=== PATIENT | male | born 1975 | race Caucasian/White ===

== ENCOUNTER 2023-04-11 08:29 | Emergency (ER) | payer OTHER, MEDICAID, SELFPAY ==
[2023-04-11 08:31] VITALS: BP 117/85; PULSE 74; RESP 18; TEMP 36.5; O2SAT 100
--- NOTE | 2023-04-11 08:55 | EDS_ITS ---
HPI History of Present Illness Chief Complaint: Trauma Informant: patient Narrative Narrative: Patient is a 47-year-old male with history of opioid abuse, anxiety and depression presenting for finger injury. Patient was at work and trying to unjam a slicer when it moved and the blade came down on the patient's right middle finger. It took off the tip of his finger. He had bleeding. He could not find the tip. Is unsure when his last tetanus was. Denies any other injuries. Denies associate numbness or tingling. Is having pain at the site. Is able to move his finger. Bleeding seems to be controlled with direct pressure. Patient is right-hand dominant. Tetanus Immunization: Unknown PFSH PFSH Home Medications cephalexin 500 mg capsule 500 mg PO Q8H #9 caps 04/11/23 [Rx Last Taken Unknown] fluoxetine 20 mg capsule 20 mg PO DAILY 04/11/23 [History Last Taken Unknown] lamotrigine 25 mg tablet 50 mg PO DAILY 04/11/23 [History Last Taken Unknown] oxycodone-acetaminophen 5 mg-325 mg tablet (Percocet) 1 tab PO Q6H PRN pain 3 days #12 tabs 04/11/23 [Rx Last Taken Unknown] Allergy/AdvReac Type Severity Reaction Status Date / Time No Known Allergies Allergy Verified 04/11/23 08:31 Social History Smoking Status: Current every day smoker ROS ROS ED Constitutional Constitutional ED: Denies chills or fever(s) Gastrointestinal Gastrointestinal: Denies nausea or vomiting Musculoskeletal Musculoskeletal: Reports other Details: Right middle finger pain Integumentary Reports other Details: Laceration to the right middle finger Neurologic Neurologic: Denies paresthesias or weakness Psychiatric Psychiatric: Denies anxiety Hematologic/Lymphatic Hematologic/Lymphatic: Denies easy bleeding or easy bruising EXAM Physical Exam Const Vital Signs: 04/11/23 08:31 Temperature 97.7 F L Temperature Source Temporal Pulse Rate 74 Respiratory Rate 18 Blood Pressure 117/85 H Blood Pressure Mean 95 Pulse Ox 100 Oxygen Delivery Method Room Air Positive well nourished and well developed General Appearance ED: well developed and NAD HEENT atraumatic Chest Wall inspection of chest normal Resp normal respiratory effort Cardio regular rhythm Rate: regular rate Extremity normal to inspection and full ROM Extremity Narrative: Patient has amputation of the distal aspect of the right middle finger but otherwise has normal range of motion. Neuro oriented x3, moves all extremities, no focal motor deficits and no sensory deficits noted Psych mental status grossly normal Skin Skin Narrative: Avulsion of the distal aspect of the right middle finger. The proximal nailbed is intact with no significant subungual hematoma. No obvious exposed bone. MDM MDM MDM Narrative Medical decision making narrative: Patient valuated for avulsion of the right middle finger. Tetanus is updated. Will obtain an x-ray to ensure there is no bony involvement. Is not amenable to suture repair but will ensure that there is no further bleeding. Patient is requesting for pain and is agreeable with oxycodone. Patient has good bleeding control in the ER. Bandages changed 1 more time, wound is rinsed with saline and the Gelfoam and direct pressure again applied. X-ray viewed by myself as well as radiology does not show any acute bony injury. Because of the depth of the wounds and mechanism will place on prophylactic antibiotic for 3 days with Keflex. Patient is agreeable with a short course of Percocet for pain control. Also counseled he can take ibuprofen. Counseled to follow-up next week for wound check through the [facility]. Radiography Diagnostic Testing: Clinical Impression(s) from Imaging Studies Finger X-Ray 04/11/23 08:55 IMPRESSION: Soft tissue amputation overlying the distal phalanx of the third digit. No bony involvement is seen. Electronically Signed: Jef Mares MD at 9:07 EST Reading Location ID and State: [facility] / [place] , Service support , Discharge Plan Triage Chief Complaint: Trauma Other Complaint: Upper Extremity Injury ED Provider: Lizeth Watkins Dx/Rx/DC Orders Clinical Impression: Laceration of left middle finger, Avulsion of finger tip Instructions: ED Laceration, All Closures, ED Skin Tear (Skin Avulsion) Prescriptions: New oxycodone-acetaminophen [Percocet] 5-325 mg tablet 1 tab PO Q6H PRN (Reason: pain) 3 Days Qty: 12 0RF cephalexin 500 mg capsule 500 mg PO Q8H Qty: 9 0RF No Action fluoxetine 20 mg capsule 20 mg PO DAILY Patient Comments: Take 1 capsule by mouth once daily. lamotrigine 25 mg tablet 50 mg PO DAILY Patient Comments: Take 2 tablets by mouth every afternoon. Stand Alone Forms: Work Status Form Primary Care Provider: Jose Gonzalez Referrals: [facility] [Group of Physicians] - 3-5 Days (for wound check ) Jose Gonzalez MD [Primary Care Provider] - Activity Restrictions/Additional Instructions: You may also take ibuprofen for pain. Keep the Gelfoam on for at least 24 hours. If you have bleeding you will need to apply direct pressure to the site. For the next few time to change the dressing (once a day) you can apply another piece of Gelfoam. When she stopped using Gelfoam please apply liberal amount of bacitracin ointment or Vaseline between your finger and the bandage so the bandage does not stick to it. Follow-up with [facility] provider for wound check next week. You been given a course of antibiotics also to prevent associated infection.
--- NOTE | 2023-04-11 08:55 | RAD_ITS ---
STUDY: X-RAY - RIGHT HAND, ATTENTION THIRD FINGER REASON FOR EXAM: Male, 47 years old. Injury/Pain -- 3rd finger. Partial amputation. TECHNIQUE: 3 view(s) of the finger were obtained. COMPARISON: None. FINDINGS: Normal metacarpal head. Normal metacarpophalangeal joint. Normal proximal phalanx. Normal middle phalanx. Normal distal phalanx. Normal proximal interphalangeal joint. Normal distal interphalangeal joint. There is soft tissue amputation of the distal third digit. No bony abnormality is seen. RAD/Finger(s) Min 2 Views IMPRESSION: Soft tissue amputation overlying the distal phalanx of the third digit. No bony involvement is seen. Electronically Signed: Jef Mares MD at 9:07 EST ,
[2023-04-11] MEDS: Diphth,Pertuss(Acell),Tet Vac 0.5 ML Vial IM (08:58)
[2023-04-11] MEDS: oxyCODONE 5 MG Tablet PO (08:58)
--- OUTSIDE RECORDS SUMMARY | 2023-04-11 09:42 | XMS RPT_ITS | CCD ---
Author Name Unknown Address [address] [place] [address] Organization [facility] Care Team Providers Care Floor Covering Printer Name Role Phone David Scott MD Primary Care Provider [phone] Ms. Barry Jurado Attending KASHIF Mireles Attending Unavailable JEFF KEYS Admitting Unavailable SUSAN MARTINEZ Referring Unavailable DAVID SCOTT Primary Care Unavailable DAVID SCOTT Primary Care Unavailable SUSAN MARTINEZ Referring Unavailable DAVID SCOTT Primary Care Unavailable PEYMAN CARR Attending Unavailable DAVID SCOTT Primary Care Unavailable SUSAN MARTINEZ Attending Unavailable DAVID SCOTT Referring Unavailable DAVID SCOTT Attending Unavailable DAVID SCOTT Primary Care Unavailable DAVID SCOTT Primary Care Unavailable SUSAN MARTINEZ Referring Unavailable SE WILKINSON Attending Unavailalec cage Allergies Allergy Classification Reported Allergen(s) Allergy Type Date of Onset Reaction(s) Facility (9 sources) Fish; Translations: [FISH] Propensity to adverse reactions 05-20-2008 [facility] Medications Current Medications Medication Drug Class(es) Dates Sig (Normalized) Sig (Original) FLUoxetine 10 mg oral capsule (9 sources) Serotonin Reuptake Inhibitor Start: 10-08-2022 End: 04-06-2023 take 1 capsule by mouth once daily FLUoxetine (PROZAC) 10 mg capsule Take 1 capsule by mouth once daily. To be taken with Prozac 20 mg daily. 30 capsule 5 10/08/2022 04/06/2023 Active Completed/Discontinued Medications Medication Drug Class(es) Dates Sig (Normalized) Sig (Original) Albuterol (2 sources) beta2-Adrenergic Agonist End: 09-06-2022 ALBUTEROL INHALATION Inhale as instructed as directed. 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; Translations: [Alcohol dependence with unspecified alcohol-induced disorder] 09-06-2022 Chronic Anxiety disorders (3 sources) Generalized anxiety disorder; Translations: [Generalized anxiety disorder] Onset: 10-08-2022 09-06-2022 Chronic Epilepsy; convulsions (7 sources) Seizure; Translations: [Unspecified convulsions] Onset: 10-10-2022 09-06-2022 Episodic Miscellaneous mental health disorders (1 source) Chronic insomnia; Translations: [Psychophysiologic insomnia] 10-08-2022 Chronic Mood disorders (6 sources) Depressive disorder; Translations: [Other specified depressive episodes] Onset: 05-20-2008 05-20-2008 Chronic Other aftercare (2 sources) Other terminal worker (current) drug therapy; Translations: [Other chcf (current) drug therapy] Onset: 09-18-2022 Episodic Other screening for suspected conditions (not mental disorders or infectious disease) (1 source) Patient encounter status; Translations: [Encounter for screening for malignant neoplasm of colon] 09-06-2022 Episodic Residual codes; unclassified (1 source) Family history of cancer of colon; Translations: [Family history of malignant neoplasm of digestive organs] 09-06-2022 Episodic Substance-related disorders (6 sources) Opioid dependence; Translations: [Opioid dependence, uncomplicated] Onset: 01-09-2011 01-09-2011 Chronic Suicide and intentional self-inflicted injury (2 sources) Suicidal ideations; Translations: [Suicidal ideations] Onset: 09-21-2022 Episodic Unclassified (1 source) Alcohol use, unspecified with withdrawal, uncomplicated (HCC); Translations: [Alcohol use, unspecified with withdrawal, uncomplicated (HCC)] Onset: 09-21-2022 Unclassified (1 source) Alcohol use disorder; Translations: [Alcohol use disorder] Onset: 10-10-2022 Past or Other Problems Problem Classification Problem Date Documented Date Episodic/Chronic Fracture of upper limb (6 sources) Closed fracture of metacarpal bone; Translations: [Unspecified fracture of unspecified metacarpal bone, initial encounter for closed fracture] Onset: 09-11-2005 09-11-2005 Episodic Other connective tissue disease (6 sources) Pain in limb; Translations: [Pain in unspecified limb] Onset: 09-25-2005 09-25-2005 Episodic Unclassified (1 source) Alcohol use, unspecified with withdrawal, uncomplicated (HCC); Translations: [Alcohol use, unspecified with withdrawal, uncomplicated (HCC)] Onset: 09-21-2022 Results Test Name Value Interpretation Reference Range Facil ity Vital Signs Date Time Vital Sign Value Performing Clinician Faci lity 10-14-2022 10:42-0400 Body height 177.8 cm Se Wilkinson MD Work Phone: [facility] 10-14-2022 10:42-0400 Body weight 60.33 kg Se Wilkinson MD Work Phone: [facility] 10-14-2022 10:42-0400 Diastolic blood pressure 72 mm[Hg] Se Wilkinson MD Work Phone: [facility] 10-14-2022 10:42-0400 Heart rate 64 /min Se Wilkinson MD Work Phone: [facility] 10-14-2022 10:42-0400 Systolic blood pressure 111 mm[Hg] Se Wilkinson MD Work Phone: [facility] 10-08-2022 07:43-0400 Body weight 60.69 kg Peyman Carr APRN.REPAIR TECH Work Phone: [facility] 10-08-2022 07:43-0400 Diastolic blood pressure 76 mm[Hg] Peyman Carr APRN.REPAIR TECH Work Phone: [facility] 10-08-2022 07:43-0400 Heart rate 62 /min Peyman Carr APRN.REPAIR TECH Work Phone: [facility] 10-08-2022 07:43-0400 Respiratory rate 16 /min Peyman Carr APRN.REPAIR TECH Work Phone: [facility] 10-08-2022 07:43-0400 SaO2% (BldA) [Mass fraction] 98 % Peyman Carr APRN.REPAIR TECH Work Phone: [facility] 10-08-2022 07:43-0400 Systolic blood pressure 113 mm[Hg] Peyman Charanjit SEAMANREPAIR TECH Work Phone: [facility] 09-06-2022 10:39-0400 Body weight 60.6 kg David Scott MD Work Phone: [facility] 09-06-2022 10:39-0400 Diastolic blood pressure 78 mm[Hg] David Scott MD Work Phone: [facility] 09-06-2022 10:39-0400 Heart rate 88 /min David Scott MD Work Phone: [facility] 09-06-2022 10:39-0400 Respiratory rate 16 /min David Scott MD Work Phone: [facility] 09-06-2022 10:39-0400 Systolic blood pressure 120 mm[Hg] David Scott MD Work Phone: [facility] Encounters Encounter Date Encounter Type Care Provider Facility Start: 10-18-2022 Telephone encounter Susan alcantara PA-C Work Phone: Neurology Procedures Date Procedure Procedure Detail Performing Clinician Start: 10-18-2022 Mri brain brain stem w/o w/contrast material Susan Martinez PA-C Work Phone: Plan of Treatment Date Care Activity Detail Author Start: 10-25-2022 Influenza vaccination [facility] Start: 02-24-2022 DEPRESSION ASSESSMENT DEPRESSION ASS ESSMENT [facility] Start: 07-16-2021 DIABETES SCREEN DIABETES SCREEN [facility] Start: 07-16-2021 Diabetes Screening Diabetes Screenin g [facility] Start: 07-21-2020 COLOGUARD (FIT-DNA) COLOGUARD (FIT-D NA) [facility] Start: 07-21-2020 Colonoscopy COLONOSCOPY [facility] Start: 07-21-2020 COLORECTAL CANCER SCREENING COLORECTAL CANCER SCREENING [facility] Start: 07-21-[address] COLONOGRAPHY [facility] Start: 07-21-2020 FECAL OCCULT BLOOD FECAL OCCULT BLOO D [facility] Start: 07-21-2020 SIGMOIDOSCOPY SIGMOIDOSCOPY [facility] Start: 07-21-2010 Lipid 1996 panel - S stefanie or Plasma Lipid Screening [facility] Start: 07-21-2010 LIPID SCREEN LIPID SCREEN [facility] Start: 07-21-1994 Urine microalbumin profile [facility] Start: 07-21-1993 HEPATITIS C SCREENING HEPATITIS C SC TONA [facility] Start: 07-21-1993 HIV SCREENING HIV SCREENING [facility] Start: 01-22-1976 COVID-19 VACCINE (#1) COVID-19 VACCI NE (#1) [facility] Start: 1975 HEPATITIS B (1 of 3 - 3-dose series) HEPATITIS B (1 of 3 - 3-dose series) [facility] Start: 1975 Hepatitis B Vaccine (1 of 3 - 3-dose series) Hepatitis B Vaccine (1 of 3 - 3-dose series) [facility] Payers Date Payer Category Payer Medicaid ANTH MEDICAID ANTHE[place] [employer] MED[place] [id number] 2022-Present [phone] [address] [place] [address] Medicaid [id number] 2022 Medicaid [id number] 2019 Unknown ANTHEM BLUE ACCE SS PPO [id number] 2019-Present [phone] [address] [place] [id number] PPO [id number] 1975 Unknown [id number] Social History Date Type Detail Facility Start: 08-14-2018 End: 10-14-2022 Tobacco smoking status NHIS Ex-smoker [facility] End: 08-07-2018 History of tobacco use Current smoker [facility] End: 08-07-2018 History of tobacco use Cigarette Smoker [facility] Start: 08-14-2018 End: 09-06-2022 Cigarettes smoked current (pack per day) - Reported 1 [facility] Start: 08-14-2018 End: 10-14-2022 Tobacco use and exposure Smokeless tobacco non-user [facility] Start: 10-10-2021 End: 10-08-2022 Alcohol intake Current drinker of alcohol (finding) [facility] Start: 10-10-2021 End: 09-06-2022 Tobacco use panel [facility] Adult Depression Screening Assessment 0 [facility] Start: 07-15-2018 Alcohol Comment 3-6 cans of be er per day [facility] Start: 1975 Sex Assigned At Male [facility] Start: 07-21-2019 Gender identity Identifies as male gender (finding) [facility] Start: 07-21-2019 Sexual orientation Heterosexual (fin ding) [facility] Are you now , , , , never or living with a partner? Refused [facility] How often to you hav e a drink containing alcohol? 4 or more times a week [facility] How many standard drinks containing alcohol do you have on a typical day? 10 or more [facility] How often do you hav e 6 or more drinks on 1 occasion? Daily or almost daily [facility] (I/We) worried wheth er (my/our) food would run out before (I/we) got money to buy more. DK or Refused [facility] In the past 12 month s, was there a time when you were not able to pay the mortgage or rent on time? No [facility] Start: 10-14-2022 Alcohol intake Ex-drinker (finding) [facility] Start: 10-14-2022 Tobacco [facility] NEGATED: Highlighted rowStart: TOMF History of tobacco use Passive smoker [facility] Clinical Notes 09-03-2022 to 10-18-2022 Telephone Encounter - Mary Crews LPN - 10/18/2022 11:14 AM EDTTelephone Encounter - Susan Martinez PA-C - 10/18/2022 11:02 AM Becky Colon RT(Jennifer) - 10/18/2022 8:40 AM EDTPatient Instructions Note Date & Type Note Facility 10-18-2022 Miscellaneous Notes Phone call placed patient advised (see prior provider encounter) Patient verbalized understanding, agreed with plan of care. Mary Crews LPN MRI of the brain is normal. Patient requested call for results. documented in this encounter [facility] 10-18-2022 Note HNO ID: [id number] Author: Becky Guerrero RT(Jennifer) Service: ? Author Type: Technologist Type: Progress Notes Filed: 10/18/2022 8:57 AM Note Text: Radiology Service Progress Note DATE OF SERVICE: October 18, 2022 TIME: 8:57 AM PATIENT IDENTITY VERIFICATION COMPLETED USING TWO (2) STANDARD IDENTIFIERS: Name and Date of confirmed by patient verbally. FALL SCREENING: Has the patient had 2 falls in the last year or 1 fall with injury or currently using an Ambulatory Assistive Device (Walker, Cane, Wheelchair, Crutches, etc.)? No PATIENT GENDER DATA: Male PATIENT RELEVANT IMPLANT DATA REVIEWED: Yes ALLERGIES: Reviewed and unchanged CONTRAST ALLERGY: NO. EXAM: MRI - CONTRAST TYPE: GROUP II PERIPHERAL IV DATA: Ambulatory: A peripheral IV was started in the Right antecubital site with a Angio cath: 22 gauge. RADIOLOGY DEPARTMENT: MR; Exam(s) Completed: Head: Seizure SIGNATURE: RT Olivia(R) PATIENT NAME: Scottie Echeverria DATE: October 18, 2022 TIME: 8:57 AM [facility] 10-18-2022 History of Presen t illness Narrative Radiology Service Progress Note DATE OF SERVICE: October 18, 2022 TIME: 8:57 AM PATIENT IDENTITY VERIFICATION COMPLETED USING TWO (2) STANDARD IDENTIFIERS: Name and Date of confirmed by patient verbally. FALL SCREENING: Has the patient had 2 falls in the last year or 1 fall with injury or currently using an Ambulatory Assistive Device (Walker, Cane, Wheelchair, Crutches, etc.)? No PATIENT GENDER DATA: Male PATIENT RELEVANT IMPLANT DATA REVIEWED: Yes ALLERGIES: Reviewed and unchanged CONTRAST ALLERGY: NO. EXAM: MRI - CONTRAST TYPE: GROUP II PERIPHERAL IV DATA: Ambulatory: A peripheral IV was started in the Right antecubital site with a Angio cath: 22 gauge. RADIOLOGY DEPARTMENT: MR; Exam(s) Completed: Head: Seizure SIGNATURE: RT Olivia(R) PATIENT NAME: Scottie Echeverria DATE: October 18, 2022 TIME: 8:57 AM documented in this encounter [facility] 10-14-2022 Note HNO ID: [id number] Author: Se Wilkinson MD Service: ? Author Type: Physician Type: Progress Notes Filed: 10/21/2022 4:36 PM Note Text: [facility] Neurological [facility] Patient Name: Scottie Estrella Date of : 1975 Referring Provider: Susan Martinez [address] [place] [address] INITIAL EPILEPSY CLINIC NOTE 10/14/2022 11:00 AM CHIEF COMPLAINT: New Patient and Seizures HISTORY OF PRESENT ILLNESS Mr. Echeverria is a 47 year old right-handed male seen in [facility] for initial consultation. At today's visit, the patient is accompanied by: significant other Handedness: right-handed Age of onset: 47 Seizure History and Evolution Mr. Scottie Echeverria is a 47 year old Right handed male here for evaluation of seizure. Referred by Ms. Susan Martinez PA-C from Neurology clinic. Patient experienced a single lifetime generalized tonic clonic seizure on 08/31/2022. He was in [place] for his daughter's soccer game. He was drinking 24pack every day but had decreased his intake to a few cans of beer for 2-3 days prior to his seizure. He reports experiencing worsening tremors/shakiness leading up to the seizure. Per chart review, he was at a restaurant, had full body convulsive seizure. He was seen at [facility] ED in [place], [place]. Initial labs significant for hyponatremia of 129, which worsened to 126 before improving to 133. Since this seizure, he had stopped drinking. Reports no recurrence of events. Work up so far shows normal EEG at [facility]. 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 MRI is pending. No complications No febrile seizures No known STEAM PLANT OPERATOR infections, strokes Family h/o epilepsy in patient's father. Prior h/o drug use, reports abstinence for a few years now. Total # of Current Anti-seizure Medications: Side Effects to Current Anti-seizure Medications: Seizure Frequency at First Visit: Longest Seizure-free Interval: CURRENT OUTPATIENT ANTISEIZURE MEDICATIONS (as of the start of the encounter) lamoTRIgine (LAMICTAL) 25 mg tablet (Taking) Take 2 tablets by mouth every afternoon. Prior Anti-seizure Therapies: Trial Adequacy: Max Daily Dose Achieved: Side Effects: Effectiveness: Comments: Comorbidities: Episode Description: SEIZURE TYPE 1: GTCS Aura: no Description: Pt was feeling tremulous leading upto the seizure. Had significantly cutdown his alcohol intake for 2-3 days prior to seizure. Witness account describe whole body stiffening and shaking. Loss of awareness: Duration: Frequency: Last occurred: yes Patient Entered Data: EPILEPSY SCORE No Data PHQ-9 SCORE - MIGUELITO 2 SCORE - MIGUELITO 7 SCORE - QOLIE-10 SCORE (0=worst; 100=best QoL - higher scores represent better function) - LSSS SCORE (0- no seizures 100- most severe possible seizures) - C-SSRS SCREEN - On average, how many hours of sleep do you get in a 24-hour period? - PROMIS Sleep Disturbance T-SCORE - Have you been diagnosed with Sleep Apnea? - Seizure risk factors: Brain Tumor Unanswered STEAM [employer] Infections Unanswered Developmental Delay Unanswered Family history of seizures Unanswered Febrile Seizure Unanswered Complications Unanswered Stroke Unanswered Traumatic Brain Injury Unanswered Previous Epilepsy Evaluations EEG [facility] 10/10/2022: Normal Other caregivers: Primary Care Provider: David Scott MD Current Outpatient Medications Medication Sig traZODone (DESYREL) 50 mg tablet Take 50 mg by mouth at bedtime as needed. lamoTRIgine (LAMICTAL) 25 mg tablet Take 2 tablets by mouth every afternoon. FLUoxetine (PROZAC) 10 mg capsule Take 1 capsule by mouth once daily. To be taken with Prozac 20 mg daily. FLUoxetine (PROZAC) 20 mg capsule Take 1 capsule by mouth once daily. No current facility-administered medications for this visit. ALLERGIES Allergen Reactions Fish Swelling PAST MEDICAL HISTORY Diagnosis Date Depressive disorder, not elsewhere classified Lesion of ulnar nerve PAST SURGICAL HISTORY Procedure Laterality Date PAST SURGICAL HISTORY OF Laceration repair left arm PAST SURGICAL HISTORY OF Oral surgery RPR UMBILICAL HERNIA < 5 YRS REDUCIBLE 2005 Hernia repair, umbilical FAMILY HISTORY Problem Relation Age of Onset other (Epilepsy [Other]) Father other (Circulation [Other]) Father None Mother SOCIAL HISTORY: -Lives in [place], [place] -Patient lives alone? -Vocation: -Education: -Cigarette, alcohol, substance use: -Functional status: -Patient driving? Review of Systems All other systems reviewed and are negative. VITAL SIGNS: BP 111/72 Pulse 64 Ht 177.8 cm (5' 10 ) Wt 60.3 kg (133 lb) BMI 19.08 kg/m? General Examination: He is accompanied. General: Awake, alert, interactive, no acute distress, good nutritional status, normal development, well-kept Neurological (more content not included)... [facility] 10-14-2022 Instructions Se Wilkinson MD - 10/14/2022 11:23 AM EDT Summary of the things we discussed today You had a single tonic -clonic seizure- likely precipitated by alcohol withdrawal. Your EEG is normal We will wait for your MRI results. If EEG and MRI are normal, after a single seizure, we will monitor without starting seizure medications. Seizure precautions - No driving in the [facility] until seizure free for 6 months. Please check with local state authorities for state specific driving regulations. - No operating heavy machines - No swimming without supervision or bathing in a bathtub due to risk of drowning in the event of a seizure. Patient may shower. - Avoid unsafe heights, including ladders, due to risk of fall-related injury in the event of a seizure. - Seizure precipitating factors discussed including not taking seizure medications as prescribed, stress, excessive caffeine intake, energy drinks, alcohol, sleep deprivation or any identifiable seizure precipitating factor. Se Wilkinson MD Associate Staff, Epilepsy [facility] October 14, 2022 Office phone: [phone] documented in this encounter [facility] 10-14-2022 History of Presen t illness Narrative [facility] Patient Name: Scottie Estrella Date of : 1975 Referring Provider: Susan Martinez [address] [address] INITIAL EPILEPSY CLINIC NOTE 10/14/2022 11:00 AM CHIEF COMPLAINT: New Patient and Seizures HISTORY OF PRESENT ILLNESS Mr. Echeverria is a 47 year old right-handed male seen in [facility] for initial consultation. At today's visit, the patient is accompanied by: significant other Handedness: right-handed Age of onset: 47 Seizure History and Evolution Mr. Scottie Echeverria is a 47 year old Right handed male here for evaluation of seizure. Referred by Ms. Susan Martinez PA-C from Neurology clinic. Patient experienced a single lifetime generalized tonic clonic seizure on 08/31/2022. He was in [place] for his daughter's soccer game. He was drinking 24pack every day but had decreased his intake to a few cans of beer for 2-3 days prior to his seizure. He reports experiencing worsening tremors/shakiness leading up to the seizure. Per chart review, he was at a restaurant, had full body convulsive seizure. He was seen at [facility] ED in [place], [place]. Initial labs significant for hyponatremia of 129, which worsened to 126 before improving to 133. Since this seizure, he had stopped drinking. Reports no recurrence of events. Work up so far shows normal EEG at [facility]. 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 MRI is pending. No complications No febrile seizures No known STE[employer] O[employer] infections, strokes Family h/o epilepsy in patient's father. Prior h/o drug use, reports abstinence for a few years now. Total # of Current Anti-seizure Medications: Side Effects to Current Anti-seizure Medications: Seizure Frequency at First Visit: Longest Seizure-free Interval: CURRENT OUTPATIENT ANTISEIZURE MEDICATIONS (as of the start of the encounter) lamoTRIgine (LAMICTAL) 25 mg tablet (Taking) Take 2 tablets by mouth every afternoon. Prior Anti-seizure Therapies: Trial Adequacy: Max Daily Dose Achieved: Side Effects: Effectiveness: Comments: Comorbidities: Episode Description: SEIZURE TYPE 1: GTCS Aura: no Description: Pt was feeling tremulous leading upto the seizure. Had significantly cutdown his alcohol intake for 2-3 days prior to seizure. Witness account describe whole body stiffening and shaking. Loss of awareness: Duration: Frequency: Last occurred: yes Patient Entered Data: EPILEPSY SCORE No Data PHQ-9 SCORE - MIGUELITO 2 SCORE - MIGUELITO 7 SCORE - QOLIE-10 SCORE (0=worst; 100=best QoL - higher scores represent better function) - LSSS SCORE (0- no seizures 100- most severe possible seizures) - C-SSRS SCREEN - On average, how many hours of sleep do you get in a 24-hour period? - PROMIS Sleep Disturbance T-SCORE - Have you been diagnosed with Sleep Apnea? - Seizure risk factors: Brain Tumor Unanswered [employer] Infections Unanswered Developmental Delay Unanswered Family history of seizures Unanswered Febrile Seizure Unanswered Complications Unanswered Stroke Unanswered Traumatic Brain Injury Unanswered Previous Epilepsy Evaluations EEG [facility] 10/10/2022: Normal Other caregivers: Primary Care Provider: David Scott MD Current Outpatient Medications Medication Sig traZODone (DESYREL) 50 mg tablet Take 50 mg by mouth at bedtime as needed. lamoTRIgine (LAMICTAL) 25 mg tablet Take 2 tablets by mouth every afternoon. FLUoxetine (PROZAC) 10 mg capsule Take 1 capsule by mouth once daily. To be taken with Prozac 20 mg daily. FLUoxetine (PROZAC) 20 mg capsule Take 1 capsule by mouth once daily. No current facility-administered medications for this visit. ALLERGIES Allergen Reactions Fish Swelling PAST MEDICAL HISTORY Diagnosis Date Depressive disorder, not elsewhere classified Lesion of ulnar nerve PAST SURGICAL HISTORY Procedure Laterality Date PAST SURGICAL HISTORY OF Laceration repair left arm PAST SURGICAL HISTORY OF Oral surgery RPR UMBILICAL HERNIA < 5 YRS REDUCIBLE 2005 Hernia repair, umbilical FAMILY HISTORY Problem Relation Age of Onset other (Epilepsy [Other]) Father other (Circulation [Other]) Father None Mother SOCIAL HISTORY: -Lives in [place], [place] -Patient lives alone? -Vocation: -Education: -Cigarette, alcohol, substance use: -Functional status: -Patient driving? Review of Systems All other systems reviewed and are negative. VITAL SIGNS: BP 111/72 Pulse 64 Ht 177.8 cm (5' 10 ) Wt 60.3 kg (133 lb) BMI 19.08 kg/m General Examination: He is accompanied. General: Awake, alert, interactive, no acute distress, good nutritional status, normal development, well-kept Neurological Exam Mental Status Alert, fully oriented, attentive, with normal cognition, memory, speech and affect. Cranial Nerves Face symmetric. Hearing intact with conversational speech. Motor Examination and Coordination Motor examination with normal bulk. Normal coordination. No adventitious movements or significant tremor. Reflexes Deep tendon reflexes graded by MRC Gait Casual gait normal. IMPRESSION: Mr. Socttie Echeverria is a 47 year old Right handed male with a single lifetime GTCS likely in the setting of significant abrupt decrease in alcohol intake. Initial work up after the seizure also showed hyponatremia (likely due to chronic alcohol use?). Since this is likely a provoked seizure, we discussed that if EEG and MRI remain normal, we may continue to monitor off of AEDs. He is on Lamictal 50 mg daily for mood indication. EEG at [facility] is normal. MRI is pending. 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 DIAGNOSIS SUMMARY Single Seizure PLAN: Await MRI results. If EEG and MRI are normal, we will monitor without additional AEDs. Discussed seizure precautions including no driving for 6 months. Follow up in 6 months. Data reviewed as above including: electronic medical record, outside records Education Seizure precautions - No driving in the [facility] until seizure free for 6 months. Please check with local state authorities for state specific driving regulations. - No operating heavy machines - No swimming without supervision or bathing in a bathtub due to risk of drowning in the event of a seizure. Patient may shower. - Avoid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 male presented for emergency evaluation. Given his presenting symptoms, severity of illness, acute illness with systemic symptoms, and potential need for hospital admission, I ordered an IV, 2 large bore IVs, laboratory evaluation, and medications. ALL ED COURSE Value Comment By Time 47 y/o M no pmhx comes to ed today via ems c/o seizure like activity witnessed by family. Pt is out of state-has been traveling with family and here for a soccer game. Around 5:45pm pt was at a restaurant with family when he had a sudden onset of generalized shaking with LOC for 4 minutes with urinary incontinence. +hit head. Drinks 8 cans of beer daily; drank 3 cans of beer earlier today.
Afebrile, HR in 90s, BP 150/107, RR 22, SpO2 92% on RA
PE: AAOx3. Tremulous. No tongue laceration. Pants soiled from urinary incontinence. No focal neuro deficits. Normal S1, S2. Lungs CTAB. Abd soft nontender.
Ddx: initial seizure iso alcohol withdrawal vs stroke vs trauma vs metabolic disturbance vs neoplasm. Most likely seizure provoked by alcohol withdrawal given clinical history. Less likely stroke given no FND. Will obtain basic labs: bmp, ekg. Will treat with clorazepate, diazepam to prevent further alc withdrawal convulsions. MorenoDonn gant Lisette 08/31 1856 Basic metabolic panel remarkable for mild hyponatremia with anion gap metabolic acidosis, likely a combination of beer Poto ealine and alcoholic ketosis. Will give D5 NS and plan to repeat BMP. Dodie Villaseñor, DO 08/31 2014 The patient's anion gap metabolic acidosis is resolved but hyponatremia is worse. The patient did complete all of his IV fluids. I discussed with him the seriousness of this diagnosis and potential for life-threatening complications if left unmanaged. The patient insists that he be discharged. He has intact decision-making capacity. Dodie Villaseñor, DO 08/31 2136 On a repeat basic metabolic panel, the patient is no longer hyponatremic and I do not think that admission at this point would benefit him given his reassuring laboratory work-up. Patient can be discharged home. Dodie Villaseñor, 08/31 2310 History and Exam Chief Complaint Patient presents with Seizures Scottie Echeverria is a 47 y.o. male with no past medical history who was BIBA from [facility] to the ED with complaint of seizures. Per EMS, patient is from [place] and is currently in town for a soccer tournament. Patient was eating dinner when he had a seizure lasting about 4 minutes. Endorses mild head strike. Reported that dad had new onset epilepsy later in life. Endorses 6-8 beers a day and has drank 3 today. EMS vitals: BP 150/98 HR 108 Blood glucose 78. Per patient, he was sitting at [facility] eating dinner when he handed his a plate and then had a seizure around 5:54. His son reports that the seizure lasted about 4 mins. Lost urine when he was seizing. Endorses headstrike. Per , patient has been sleeping more than normal, but since hes been in [place], he has not been sleeping the same. Endorses tremors when he does not drink alcohol. Denies chest pain, SOB, diarrhea, fever, weakness, headaches, fatigue, and lightheadedness. Past medical history, appointments, medications, allergies reviewed. Previous Medical History PAST MEDICAL HISTORY Diagnosis Date Depressive disorder, not elsewhere classified Lesion of ulnar nerve Previous Surgical History PAST SURGICAL HISTORY Procedure Laterality Date PAST SURGICAL HISTORY OF Laceration repair left arm PAST SURGICAL HISTORY OF Oral surgery RPR UMBILICAL HERNIA < 5 YRS REDUCIBLE 2004 Hernia repair, umbilical Family History FAMILY HISTORY Problem Relation Age of Onset other (Epilepsy [Other]) Father other (Circulation [Other]) Father None Mother Patient Allergies ALLERGIES Allergen Reactions Fish Swelling Current Medications Current Outpatient Medications on File Prior to Visit Medication Sig dexamethasone (DECADRON) 1 mg tablet Take 1 tablet, for a test ALBUTEROL INHALATION Inhale as instructed as directed. No current facility-administered medications on file prior to visit. Social History Social History Tobacco Use Smoking status: Former Packs/day: 1.00 Years: 14.00 Total pack years: 14.00 Types: Cigarettes Quit date: 08/07/2018 Years since quittin.0 Smokeless tobacco: Never Vaping Use Vaping Use: current everyday user Substance Use Topics Alcohol use: Yes Comment: 3-6 cans of beer per day Drug use: No EXAM: BP 120/78 Pulse 88 Resp 16 Wt 60.6 kg (133 lb 9.6 oz) BMI 19.17 kg/m General Appearance: Well appearing, alert, in no acute distress, well-hydrated, well nourished.. Lungs: Lungs clear to auscultation. No wheezing, rhonchi, rales.. Heart: RRR without murmur, gallop, or rubs. No ectopy. Health Maintenance List HEPATITIS B(1 of 3 - 3-dose series) Never done COVID-19 VACCINE(1) Never done HEPATITIS C SCREENING Never done HIV SCREENING Never done DTAP,TDAP,TD(1 - Tdap) Never done LIPID SCREEN Never done COLORECTAL CANCER SCREENING Never done DIABETES SCREEN due on 07/16/2021 DEPRESSION ASSESSMENT Never done INFLUENZA(1) due on 10/25/2022 Data reviewed Care Everywhere ASSESSMENT/PLAN: 1. Seizures (HCC) - ICD9: 780.39, ICD10: R56.9 (primary diagnosis) Will get Neuro consult - CONSULT TO NEUROLOGY 2. Special screening for malignant neoplasms, colon - ICD9: V76.51, ICD10: Z12.11 With history of seizures and alcohol use will get Surg consult - CONSULT TO GENERAL SURGERY 3. MIGUELITO (generalized anxiety disorder) - ICD9: 300.02, ICD10: F41.1 Start Prozac for anxiety - FLUOXETINE 20 MG CAPSULE 4. Family history of colon cancer - ICD9: V16.0, ICD10: Z80.0 - CONSULT TO GENERAL SURGERY 5. Alcohol dependence with unspecified alcohol-induced disorder (HCC) - ICD9: 303.90, 291.9, ICD10: F10.29 Recommend cessation Follow up in 1 month Medical Decision Making: Problems: Moderate: New problem with uncertain prognosis Risk: Moderate: Drug management Medical Decision Making Level: 4 - Moderate David Scott MD The documentation for this note was completed by Bella Orozco Ma acting as scribe for David Scott MD. September 06, 2022 10:41 AM. Bella Orozco Ma documented in this encounter [facility] 09-06-2022 Instructions Bella Orozco Ma - 09/06/2022 10:43 AM EDT Health Information For Patients and the Community How to Prepare for Your Colonoscopy Using Golytely, Nulytely, Trilyte or Colyte Preparations IMPORTANT - Please Read These Instructions at Least 2 Weeks Before Your Colonoscopy [place] Instructions: ?Your bowel must be empty so that your doctor can clearly view your colon. Follow all of the instructions in this handout EXACTLY as they are written. If you do NOT follow the directions for when to start drinking the bowel preparation (see next page), your colonoscopy WILL be cancelled. ?Do NOT eat any solid food the ENTIRE day before your colonoscopy. ?Buy your bowel preparation at least 5 days before your colonoscopy. ?Do NOT mix the solution until the day before your colonoscopy. Designated Repairer Wood Furniture on the Day of Your Exam A responsible family member or friend MUST come with you to your colonoscopy and REMAIN in the endoscopy area until you are discharged! You are NOT ALLOWED to drive, take a taxi or bus, or leave the Endoscopy Center ALONE. If you do not have a responsible driver license agent (family member or friend) with you to take you home, your exam cannot be done with sedation and will be cancelled. Medications Some of the medicines you take may need to be stopped or adjusted before your colonoscopy. You MUST call the doctor who ordered any of the following medicines at least 2 weeks before your colonoscopy. ?Blood thinners -- such as Coumadin (warfarin), Plavix (clopidogrel), Ticlid (ticlopidine hydrochloride), Agrylin (anagrelide), Xarelto (Rivaroxaban), Pradaxa (Dabigatran), Eliquis (Apixaban), and Effient (Prasugrel). ?Insulin or diabetes pills. Please call the doctor that monitors your glucose levels. Your insulin dosage may need to be adjusted due to the diet restrictions required with this bowel preparation. (Please bring your diabetes medicines with you on the day of your procedure.) If you take aspirin, take it and ALL other medications prescribed by your doctor. On the day of your colonoscopy, take your medications with a sip of water. Revised 03/2016 1 Five (5) Days Before Your Colonoscopy ?Do NOT take medicines that stop diarrhea -- such as Imodium , Kaopectate , or Pepto Bismol . ?Do NOT take fiber supplements -- such as Metamucil , Citrucel , or Perdiem . ?Do NOT take products that contain iron -- such as multi-vitamins -- (the label lists what is in the products). ?Do NOT take vitamin E. Buy the prescription bowel preparation solution at your local pharmacy or drugstore pharmacy. Three (3) Days Before Your Colonoscopy Do NOT eat high-fiber foods -- such as popcorn, beans, seeds (flax, sunflower, quinoa), multigrain bread, nuts, salad/vegetables, or fresh and dried fruit. One (1) Day Before Your Colonoscopy Only drink clear liquids the ENTIRE DAY before your colonoscopy. Do NOT eat any solid foods. Drink at least 8 ounces of clear liquids every hour after waking up. The clear liquids you can drink include: ?water, apple, or white grape juice; broth; coffee or tea (without milk or creamer); clear carbonated beverages such as micha rio or lemon-shoshone-bannock soda; Gatorade or other sports drinks (not red); Kevon-Aid or other flavored drinks (not red). You may eat plain jello or other gelatins (not red) or popsicles (not red). Do NOT drink alcohol on the day before or the day of the procedure. 2 Revised 03/2016 When to Mix and Drink Your Bowel Prep Follow the instructions on the label. After mixing, place the solution in the refrigerator for a couple of hours before drinking. You may add the flavor packet that came with the bowel preparation. DO NOT add ice, sugar or any flavorings to the solution. Evening Before Your Colonoscopy ?Start drinking the bowel preparation at 6 PM the evening before your colonoscopy. Drink an 8-oz glass of bowel preparation every 10 minutes. You must finish drinking the solution by 9 PM the night before your scheduled procedure. ?You may continue to drink clear liquids only until midnight. Do NOT eat or drink ANYTHING after midnight the night before your procedure or your procedure may be cancelled. This is for your safety and will reduce the risk of having any food or liquid in your stomach move into your lungs (aspiration) during a procedure. If you take aspirin, take it and ALL other prescribed medicines with a sip of water on the day of your colonoscopy. Contact Information: If you are unable to keep your appointment or have any questions about the instructions, please call the facility where the procedure is being performed. Call between the hours of 8:00 AM and 5:00 PM. If you are calling after 5:00 PM, please call Nurse integration solution architect at [phone]. [facility] [address] [place] [id number] Index # [id number] Revised 03/2016 3 Colonoscopy Procedure Overview Please Read Prior to the Procedure What is a Colonoscopy A colonoscopy is an outpatient procedure in which the inside of the large intestine (colon and rectum) is examined. A colonoscopy is commonly used to evaluate gastrointestinal symptoms, such as rectal and intestinal bleeding, abdominal pain, or changes in bowel habits. Colonoscopies are also performed in individuals without symptoms to check for colorectal polyps or cancer. A screening colonoscopy is recommended for anyone 50 years of age and older, and for anyone with parents, siblings or children with a history of colorectal cancer or polyps. What Happens Before a Colonoscopy To have a successful colonoscopy, your bowel must be empty so that your physician can clearly view the colon. To do this, it is very important to read and follow all of the instructions given to you at least 2 weeks BEFORE your exam. If your bowel is not empty, your colonoscopy will not be successful and may have to be repeated. If you feel nauseated or vomit while taking the bowel preparation, wait 30 minutes before drinking more fluid and start with small sips of solution. Some activity (such as walking) or a few soda crackers may help decrease the nausea you are feeling. If the nausea persists, please contact nurse pay station department manager at [phone]. You may experience skin irritation around the anus due to the passage of liquid stools. To prevent and treat skin irritation, you should: ?Apply Vaseline or Desitin ointment to the skin around the anus before drinking the bowel preparation medications. These products can be purchased at any drugstore. ?Wipe the skin after each bowel movement with disposable wet wipes instead of toilet paper. These are found in the toilet paper area of the store. ?Sit in a bathtub filled with warm water for 10 to 15 minutes after you finish passing a stool; after soaking, blot the skin dry with a soft cloth, apply Vaseline or Desitin ointment to the anal area, and place a cotton ball just outside your anus to absorb leaking fluid. What Happens During a Colonoscopy During a colonoscopy, an experienced physician uses a colonoscope (a long, flexible instrument about 1/2 inch in diameter) to view the lining of the colon. The colonoscope is inserted into the rectum and advanced through the large intestine. If necessary during a colonoscopy, small amounts of tissue can be removed for analysis (a biopsy) and polyps can be identified and entirely removed. In many cases, a colonoscopy allows accurate diagnosis and treatment of colorectal problems without the need for a major operation. Revised 03/2016 5 ?You are asked to wear a hospital gown and an IV will be started. ?You are given a pain reliever and a sedative intravenously (in your vein). You will feel relaxed and somewhat drowsy. ?You will lie on your left side, with your knees drawn up towards your chest. ?A small amount of air is used to expand the colon so the physician can see the colon woodruff. ?You may feel mild cramping during the procedure. Cramping can be reduced by taking slow, deep breaths. ?The colonoscope is slowly withdrawn while the lining of your bowel is carefully examined. ?The procedure lasts from 30 minutes to 1 hour. What Happens After a Colonoscopy ?You will stay in a recovery room for observation until you are ready for discharge. ?You may feel some cramping or a sensation of having gas, but this quickly passes. ?If sedation has been given, a responsible family member or friend must drive you home. ?Avoid alcohol, driving, and operating machinery for 24 hours following the procedure. ?Unless otherwise instructed, you may immediately return to your normal diet. We recommend you wait until the day after your procedure to resume normal activities. ?If polyps were removed or a biopsy was taken, the physician performing your colonoscopy will tell you when it is safe to resume taking your blood thinners. ?If a biopsy was taken or a polyp was removed, you may notice a little amount of rectal bleeding for 1 to 2 days after the procedure. If you have a large amount of rectal bleeding, high or persistent fevers, or severe abdominal pain within the next 2 weeks, please go to your local emergency room and call the physician who performed your exam. 6 Revised 03/2016 Copyright [id number] [facility]. All rights reserved. Revised 03/2016 documented in this encounter [facility] 09-03-2022 Miscellaneous Notes Spoke with pt, scheduled for ER follow up on Wednesday 09/06 at 11:20 AM with PCP. Bella Orozco Ma Yes, I will see, as he was established with us previously David Scott MD Pt was last seen in office 08/14/18. He needs an ER FU after having a seizure in [place] 2 days ago. Asking if Dr Scott will see pt? Please advise. Andreina Hernandez LPN documented in this encounter [facility] Diagnosis MIGUELITO (generalized anxiety disorder)- Primary Generalized anxiety disorder Seizures (HCC) Other convulsions Chronic insomnia Insomnia, unspecified documented [facility] this [facility] Diagnosis Seizures (HCC) Other convulsions documented [facility] Diagnosis Seizures (HCC) Other convulsions documented in this encounter [facility] Summary Purpose Family History No Family History Records FoundNo Family History Records FoundNo Family History Records FoundNo Family History Records FoundNo Family History Records FoundNo Family History Records FoundNo Family History Records FoundNo Family History Records Found Advance Directives No Advanced Directives Records FoundNo Advanced Directives Records FoundNo Advanced Directives Records FoundNo Advanced Directives Records FoundNo Advanced Directives Records FoundNo Advanced Directives Records FoundNo Advanced Directives Records FoundNo Advanced Directives Records Found Reason for Referral Specialty Diagnoses / Procedures Referred By Contac t Referred To Contact Neurology Diagnoses Seizures (HCC) Procedures CONSULT TO NEUROLOGY OFFICE/OUTPATIENT [facility] 60-74 MINUTES David Scott MD [address] [place] [address] Referral ID Status Reason Start Date Expiration Date Visits Requested Visits Authorized [id number] Pending Review PCP Requested Referral 09/06/2022 09/06/2023 1 1 Specialty Diagnoses / Procedures Referred By Contac t Referred To Contact General Surgery Diagnoses Special screening for malignant neoplasms, colon Family history of colon cancer Procedures CONSULT TO GENERAL SURGERY OFFICE/OUTPATIENT [facility] 60-74 MINUTES David Scott MD [address] [place] [address] Referral ID Status Reason Start Date Expiration Date Visits Requested Visits Authorized [id number] Pending Review PCP Requested Referral 09/06/2022 09/06/2023 1 1 Specialty Diagnoses / Procedures Referred By Graciela rojas Referred To Contact MR IMAGING Diagnoses Seizures (HCC) Procedures MRI BRAIN WO/W IVCON MRI BRAIN BRAIN STEM W/O W/CONTRAST MATERIAL Susan Martinez PA-C [address] [id number] [place] [address] Referral ID Status Reason Start Date Expiration Date V isits Requested Visits Authorized [id number] Closed Auto-Generate d Referral 09/17/2022 10/17/2023 1 1 Additional Source Comments (unrecognized sect ion and content) No Status Records FoundNo Status Records FoundNo Status Records FoundNo Status Records FoundNo Status Records FoundNo Status Records FoundNo Status Records FoundNo Status Records Found INFORMATION SOURCE (unrecogn ized section and content) DATE CREATED AUTHOR AUTHOR'S ORGANIZ ATION 07/18/2019 [facility] DATE CREATED AUTHOR AUTHOR'S ORGANIZ ATION 09/13/2019 [facility] DATE CREATED AUTHOR AUTHOR'S ORGANIZ ATION 09/21/2022 [facility] DATE CREATED AUTHOR AUTHOR'S ORGANIZ ATION 09/25/2022 [facility] DATE CREATED AUTHOR AUTHOR'S ORGANIZ ATION 10/11/2022 [facility] DATE CREATED AUTHOR AUTHOR'S ORGANIZ ATION 10/19/2022 [facility] DATE CREATED AUTHOR AUTHOR'S ORGANIZ ATION 10/22/2022 [facility] Source Comments (unrecognize d section and content) In the event this informatio n is protected by the Federal Confidentiality of Alcohol and Drug Abuse Patient Records regulations: The Federal rules restrict any use of the information to criminally investigate or prosecute any alcohol or drug abuse patient.[facility] the event this information is protected by the Federal Confidentiality of Alcohol and Drug Abuse Patient Records regulations: The Federal rules restrict any use of the information to criminally investigate or prosecute any alcohol or drug abuse patient.[facility] the event this information is protected by the Federal Confidentiality of Alcohol and Drug Abuse Patient Records regulations: The Federal rules restrict any use of the information to criminally investigate or prosecute any alcohol or drug abuse patient.[facility] the event this information is protected by the Federal Confidentiality of Alcohol and Drug Abuse Patient Records regulations: The Federal rules restrict any use of the information to criminally investigate or prosecute any alcohol or drug abuse patient.[facility] the event this information is protected by the Federal Confidentiality of Alcohol and Drug Abuse Patient Records regulations: The Federal rules restrict any use of the information to criminally investigate or prosecute any alcohol or drug abuse patient.[facility] the event this information is protected by the Federal Confidentiality of Alcohol and Drug Abuse Patient Records regulations: The Federal rules restrict any use of the information to criminally investigate or prosecute any alcohol or drug abuse patient.[facility] Reason for Visit (unrecogniz ed section and content) Reason Comments ED Follow-up In [place] for seiz ure Reason Comments F/U 1 month Reason Comments Results Reason Comments New Patient Seizures Specialty Diagnoses / Procedures Referred By Graciela t Referred To Contact Neurology Diagnoses Seizures (HCC) Procedures CONSULT TO NEUROLOGY OFFICE/OUTPATIENT NEW HIGH MDM 60-74 MINUTES Susan Martinez PA-C [address] [place] [address] Referral ID Status Reason Start Date Expiration Date Visits Requested Visits Authorized [id number] Pending Review PCP Requested Referral 09/17/2022 09/17/2023 1 1 Specialty Diagnoses / Procedures Referred By Graciela rojas Referred To Contact MR IMAGING Diagnoses Seizures (HCC) Procedures MRI BRAIN WO/W IVCON MRI BRAIN BRAIN STEM W/O W/CONTRAST MATERIAL Susan Martinez PA-C [address] [place] [address] [place] [id number] Referral ID Status Reason Start Date Expiration Date V isits Requested Visits Authorized [id number] Closed Auto-Generate d Referral 09/17/2022 10/17/2023 1 1 Care Teams (unrecognized sec tion and content) Floor Covering Printer Relationship Specialty Start Date End Date David Scott MD [address] [place] [address] PCP - General Family Medicine 09/03/22 Floor Covering Printer Relationship Specialty Start Date End Date David Scott MD [address] [facility], [place] [id number] PCP - General Family Medicine 09/03/22 Floor Covering Printer Relationship Specialty Start Date End Date David Scott MD [address] [place], [place] [id number] PCP - General Family Medicine 09/03/22 Floor Covering Printer Relationship Specialty Start Date End Date David Scott MD [address] [facility], [place] [phone] PCP - General Family Medicine 09/03/22 Floor Covering Printer Relationship Specialty Start Date End Date David Scott MD [address] [facility], [place] [phone] PCP - General Family Medicine 09/03/22 FOR RECORDS PERTAINING TO PATIENTS WHO ARE OR HAVE BEEN ENROLLED IN A CHEMICAL DEPENDENCY/SUBSTANCEABUSE PROGRAM, SOME INFORMATION MAY BE OMITTED. This clinical summary was aggregated from multiple sources. Caution should be exercised in using it in the provision of clinical care. This summary normalizes information from multiple sources, and as a consequence, information in this document may materially change the coding, format and clinical context of patient data. In addition, data may be omitted in some cases. CLINICAL DECISIONS SHOULD BE BASED ON THE PRIMARY CLINICAL RECORDS. [employer] [facility] provides no warranty or guarantee of the accuracy or completeness of information in this document.
[2023-04-11 10:50] VITALS: BP 135/77; PULSE 68; RESP 15; TEMP 36.2; O2SAT 97
== END 2023-04-11 10:52 | disposition home or self-care (01) ==
PROVIDERS: Emergency Provider Emergency Medicine; PCP Family Medicine; Visit Provider Emergency Medicine
DX: S61.213A Laceration without foreign body of left middle finger without damage to nail, initial encounter (principal); F41.9 Anxiety disorder, unspecified; F17.200 Nicotine dependence, unspecified, uncomplicated; Y99.0 Civilian activity done for income or pay; W26.8XXA Contact with other sharp object(s), not elsewhere classified, initial encounter; Y93.89 Activity, other specified; Y92.89 Other specified places as the place of occurrence of the external cause; Z23 Encounter for immunization
CPT/HCPCS: 73140; 90471; 90715; 99282